=== PATIENT | male | born 2000 | race African-American/Black ===

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

== ENCOUNTER 2022-08-05 06:17 | Inpatient (IN) | payer MEDICAID ==
[~2022-08-05] VITALS: Ht 152.4 cm; Wt 59.6 kg
[2022-08-05 06:19] VITALS: O2SAT 98
[2022-08-05] MEDS ORDERED: ONDANSETRON HCL 4MG/2ML INJ IV STA (06:23)
[2022-08-05] MEDS ORDERED: SODIUM CHLORIDE 0.9% 1,000 ML IV ONE (06:30)
[2022-08-05] MEDS ORDERED: LEVETIRACETAM 500MG PREMIX 100 ML IV ONE (06:30)
[2022-08-05 07:20] LABS: HEMATOCRIT. 43.7 % (42.0-52.0); HEMOGLOBIN. 14.6 g/dL (14.0-18.0); MEAN CORPUSCULAR VOLUME 83.6 fL (80.0-94.0); MEAN PLATELET VOLUME 8.7 fl (7.4-10.4); PLATELET 312 x1000/uL (130-400); RED BLOOD CELL COUNT 5.23 mill/uL (4.7-6.1); RED CELL DISTRIBUTION WIDTH 15.1 % (11.6-14.6)
[2022-08-05 07:28] LABS: CHLORIDE 104 mEq/L (98-107)
[2022-08-05 07:41] LABS: ETHANOL BLOOD < 10 mg/dL (-10)
[2022-08-05] MEDS ORDERED: PANTOPRAZOLE SODIUM 40 MG/VIAL IV ONE (09:00)
[2022-08-05 09:42] LABS: PLATELET ESTIMATE NORMAL
[2022-08-05] MEDS ORDERED: PANTOPRAZOLE SODIUM 40 MG/VIAL IV SCH (11:45)
[2022-08-05] MEDS ORDERED: ONDANSETRON HCL 4MG/2ML INJ IV PRN (11:45)
[2022-08-05] MEDS ORDERED: DIPHENHYDRAMINE 50MG/ML VIAL IV PRN (11:45)
[2022-08-05] MEDS ORDERED: DEXT 5%/0.45% NACL 1000ML 1,000 ML IV SCH (11:45)
[2022-08-05] MEDS ORDERED: LORAZEPAM 2MG/ML CPJ IV PRN (11:45)
[2022-08-05] MEDS ORDERED: PIPERACILLIN/TAZ 3.375G PREMIX 50 ML IV NR (12:00)
[2022-08-05] MEDS ORDERED: PIPERACILLIN/TAZOBACTAM 3.375GM/50ML PREMIX IV SCH (13:00)
[2022-08-05 18:19] VITALS: BP 123/78; PULSE 133; RESP 20; TEMP 98
[2022-08-05] MEDS ORDERED: PIPERACILLIN/TAZOBACTAM 3.375G in DEXT 5% WATER 50ML IV SCH (21:00)
== END 2022-08-05 19:04 | disposition left against medical advice (07) | DRG 53 ==
LOC: ER 06:17 → 7EST 09:42 → EDBEDREQTM 09:50 → EDBEDREQ 09:50
PROVIDERS: ADMIT Hospitalist; ATTEND Hospitalist
DX: G40.909 Epilepsy, unspecified, not intractable, without status epilepticus (principal); J96.00 Acute respiratory failure, unspecified whether with hypoxia or hypercapnia; J69.0 Pneumonitis due to inhalation of food and vomit; G93.40 Encephalopathy, unspecified; K92.2 Gastrointestinal hemorrhage, unspecified; D63.8 Anemia in other chronic diseases classified elsewhere; R13.10 Dysphagia, unspecified; D72.825 Bandemia; Z53.29 Procedure and treatment not carried out because of patient's decision for other reasons; Z79.899 Other long term (current) drug therapy; Z99.3 Dependence on wheelchair; Z93.1 Gastrostomy status
CPT/HCPCS: 36415; 74176; 80053; 80165; 80320; 84145; 85025; 99291; C9113; J1953; J2405; J2543; J7030; G0480